=== PATIENT | male | born 1955 | race Caucasian/White ===

== ENCOUNTER → 2022-11-17 11:11 | Outpatient (CLI) | payer MEDICARE, SELFPAY ==
[2022-11-17 13:04] LABS: Add Manual Diff / Slide Review NO; Basophils Absolute Auto 0 /uL (0-100); Basophils Percent Auto 0.7 % (0-2); Eosinophils Absolute Auto 200 /uL (0-450); Eosinophils Percent Auto 2.6 % (2-4); Hematocrit 39.3 % (41-53); Hemoglobin 13.2 g/dL (13.5-17.5); Lymphocytes Absolute Auto 1500 /uL (1100-4500); Lymphocytes Percent Auto 23.3 % (25-40); Mean Corpuscular HGB Conc 33.7 % (30-36); Mean Corpuscular Hemoglobin 29.8 PG (26-34); Mean Corpuscular Volume 88.4 fL (80-100); Monocytes Absolute Auto 400 /uL (0-900); Monocytes Percent Auto 6.9 % (3-14); Neutrophils Absolute Auto 4200 /uL (1500-7000); Neutrophils Percent Auto 66.5 % (50-75); Platelet Count 237 X10^3/uL (150-400); Red Blood Cell Count 4.44 X10^6/uL (4.5-5.9); Red Cell Distribution Width 12.7 % (11.6-14.8); White Blood Cell Count 6.3 X10^3/uL (4.5-11.0)
[2022-11-17 13:07] LABS: Appearance Urine UA CLEAR; Bilirubin Urine UA NEGATIVE (NEGATIVE); Color Urine UA YELLOW; Glucose Urine UA NEGATIVE (Negative); Ketones Urine UA NEGATIVE (NEGATIVE); Leukocyte Esterase Urine UA NEGATIVE (NEGATIVE); Nitrite Urine UA NEGATIVE (Negative); Occult Blood Urine UA NEGATIVE (Negative); Protein Urine UA NEGATIVE (Negative); Specific Gravity Urine UA >=1.030 (1.000-1.035); Urobilinogen Urine UA 0.2 E.U./dL (0.2)
[2022-11-17 13:07] LABS: Hemoglobin A1C% w Est Avg Glu 5.2 % (4.0-6.0)
[2022-11-17 13:33] LABS: Bacteria Urine None Seen; Culture Indicated Urine Cult Not Indicated; RBC Urine None Seen (0-5/HPF); Squamous Epithelial Cell Urine 0-1 /HPF (0-5/HPF); WBC Urine None Seen (0-5/HPF)
[2022-11-17 13:49] LABS: BUN Creatinine Ratio 22.1 (6-22); Blood Urea Nitrogen 21 mg/dL (9-20); Carbon Dioxide 23 mmol/L (22-32); Chloride 107 mmol/L (98-107); Estimated Glomerular Filt Rate > 60 mL/min (>60); Glucose 91 mg/dL (80-110); HEMOLYSIS < 15 (0-50); Potassium 4.3 mmol/L (3.4-5.1); Sodium 138 mmol/L (137-145)
== END ==
PROVIDERS: Referring Provider Orthopaedic Surgery; Visit Provider Orthopaedic Surgery
DX: Z01.818 Encounter for other preprocedural examination (principal); R73.9 Hyperglycemia, unspecified; Z01.812 Encounter for preprocedural laboratory examination; N39.0 Urinary tract infection, site not specified
CPT/HCPCS: 36415; 80048; 81001; 83036; 85025; 93005; 93010

== ENCOUNTER 2023-01-19 10:57 | Day surgery (SDC) | payer MEDICARE, SELFPAY ==
[2023-01-11 08:31] VITALS: BMI 27.8
[2023-01-19] VITALS (13 sets, daily range): BP systolic 105–150; BP diastolic 73–97; PULSE 96–107; RESP 10–18; TEMP 35.9–36.6; O2SAT 95–99; BMI 27.8; BMI 30.2
--- NOTE | 2023-01-19 06:00 | DI.RAD.S_ITS ---
PROCEDURE: XR HIP W PEL IF DONE RT 2V INDICATIONS: PARISH TECHNIQUE: AP pelvis and lateral view of the right hip acquired. COMPARISON: None. FINDINGS: Bones: Improperly of postsurgical changes for right hip arthroplasty, with hardware components in expected positions. The hip joint appears congruent. The visualized bony structures appear intact. Soft tissues: No suspicious soft tissue densities. IMPRESSION: Expected intraoperative appearance of a hip arthroplasty. Dictated by: Jayashree Romero MD, PhD on 01/19/2023 at 15:23 Approved by: Jayashree Romero MD, PhD on 01/19/2023 at 15:23
[2023-01-19] MEDS: VANCOMYCIN 1,000 MG/200 ML PIGGYBACK 200 MG IV (11:38)
[2023-01-19] MEDS: PREGABALIN 75 MG CAPSULE PO (11:39)
[2023-01-19] MEDS: CELECOXIB 200 MG CAPSULE PO (11:39)
[2023-01-19] MEDS: ACETAMINOPHEN 325 MG TABLET 975 MG PO (11:41)
--- NOTE | 2023-01-19 12:39 | PM.PREOP ---
Pre-operative Note Interval Note History & Physical reviewed/Exam performed by Physician: Yes Changes to H&P: No
--- NOTE | 2023-01-19 12:39 | PM.OP.1 ---
Operative Date/Time/Diagnoses Date of procedure: 01/19/23 Time of procedure: 12:39 Pre-op diagnosis: right hip OA Post-op diagnosis: same Procedure & Clinicians Procedure: Right total hip arthroplasty anterior approach Same procedure as scheduled: Yes Indications: The patient has had progressively worsening right hip pain with radiographic changes consistent with arthritis. Non-operative management has failed and the patient has requested total hip replacement. The risks, benefits and alternatives to surgery were discussed with the patient prior to proceeding. Risks discussed included, but were not limited to, failure to relieve pain, leg length discrepancy, dislocation, stiffness, infection, nerve damage, deep venous thrombosis, pulmonary embolism, stroke, coma, heart attack, permanent paralysis and , as well as the potential need for eventual revision of the prosthetic. Surgeon: Patricia Mahoney Debt Collector: Aman Medina Anesthesia Type: General Operative Notes Findings: Tight hip, severe right hip osteoarthritis, soft bone, adequate stability Closure Type: primary Specimen(s): none sent Prosthetic devices, grafts, tissues, transplants, or devices: Mahoney and nephew R3 size 48 cup,one 6.5 mm screw, size 2 standard offset anthology,-3 x 32 Oxinium femoral head, neutral poly liner Estimated Blood Loss (mL): 250 Blood products transfused: none Procedure in detail: The patient was brought to the operating room. Patient was carefully positioned in the supine position. Time-out was performed and antibiotics were given. Anesthesia was induced. She was positioned in the on the table in order to allow hyperextension of the hip. The right lower extremity was prepped and draped in a standard sterile fashion. An anterior right right hip incision was made 1 fingerbreadth lateral to the anterior superior iliac spine and extended distally towards the greater trochanter. Dissection was carried out through skin and subcutaneous tissues. Superficial hemostasis was achieved. The fascia over the tensor fascia earl was defined and incised with a knife. Two Allis clamps were used to grasp the fascia. Tensor fascia earl was retracted laterally. A gelpi retractor was placed. Dissection was carried out down along the neck. The circumflex vessels were carefully identified and cauterized with the Aqua Mantis. There was good visualization of the femoral neck. A Cobra was placed superior to the neck and the gluteus fibers were carefully stripped from that superior aspect of the capsule. A 2nd retractor was placed along the inferior aspect of the neck. The rectus insertion along the capsule was partially released. A 3rd retractor that was then gently placed over the rim of the acetabulum under the rectus. Capsule was carefully incised and released from the intertrochanteric line circumferentially superior to the mid sagittal line and inferiorly to the mid sagittal line until the lesser trochanter was palpable. A tag stitch was placed both in the superior and inferior limb of the capsular insertion. Along the acetabulum capsule was also released up to the mid sagittal 12:00 position. A portion of the labrum was resected. A saw was used to perform an osteotomy at the level of the intertrochanteric line and the junction of the superior femoral neck leaving approximately 1 finger breath of residual inferior neck above the lesser trochanter. A 2nd cut was made along the femoral neck at the base of the head and a napkin ring of neck was removed. Corkscrew was placed in the femoral head and the head was removed without difficulty. Retractors were then repositioned around the acetabulum. Residual labrum was resected and additional osteophytes were removed. A reamer that was 4 mm below the templated size was placed by hand in the acetabulum and it was reamed to centralize the acetabulum. It was then reamed up to 2 under the templated size and fluoroscopy was brought in to confirm the position of the reaming and depth of reaming. I reamed 1 under the anticipated size. A PA was used during the procedure and was essential for intraoperative retraction and safe implantation of the components. A trial cup was placed and noted that it was appropriately sized and fluoroscopy confirmed position and depth. The component was open and inserted without difficulty fluoroscopic imaging was used to confirm that the cup had been adequately seated and was well positioned. It was further stabilized with a single screw. Neutral poly liner was placed. The cup was tested and noted to be stable. Attention was then directed to the femur. The femur was gently hyperextended additional capsular release was performed as needed in order to allow adequate visualization of the proximal femur with elevation of the femur. Patient was placed in a hyperextended slightly adducted position with maximum external rotation. Box osteotome was used to check for any residual neck as well as sclerotic bone along the trochanter. [place] pepper was placed in the femur. We attempted to broach also with a polar broach but it was clearly a very small and tight canal and it was felt that anthology was better technology. Additional broaching was performed. Canal finder was used to determine the alignment of the canal and position. Size 1 broach was placed. The canal was then appropriately broached up to the templated size as long as there was adequate stability of the broach and serial advancement of the broach without excessive impingement. Specific attention was directed at avoiding varus attempting to direct the distal aspect of the broach more anteriorly and avoiding excessive anteversion. Trial reduction initially was clearly too tight. We readjusted the femur and tamped the broach down an additional about 3 mm and calcar planed. Repeat trial reductions Showed acceptable range of motion, good stability, no posterior impingement, judaism of leg length and appropriate lateral shuck. I also hyperflexed the hip and checked that there was no impingement anteriorly and there was good stability with flexion, adduction and internal rotation. Marcaine and Exparel were injected.. The stem was placed without difficulty. Repeat trial reduction and x-ray showed acceptable overall position, length, and no evidence of the femoral fracture. Final head was placed. Wound was meticulously irrigated with normal saline. The hip was reduced and additional Exparel and Marcaine were injected. The capsule was closed with interrupted nonabsorbable sutures. The fascia of the tensor was closed with interrupted and running Vicryl. No drain was placed. Any tensor fascia earl muscle that appeared to be contused or injured which was a minimal amount was carefully resected. Capsule around the tensor was injected with Exparel and Marcaine. The skin was closed with barbed stitches for the subcutaneous tissue and skin. We also used surgical glue. The wound was dressed sterilely. Brief Betadine soak was also used and was meticulously irrigated with normal saline. Patient was transferred to recovery room in satisfactory condition. Complications: none Post-operative Condition: stable Disposition: Acute Care Plan for aftercare: The patient will be maintained on a standard total hip replacement protocol with weight bearing as tolerated and anterior hip precautions. The patient will receive Aspirin and sequential compression devices for DVT prophylaxis. The patient will be discharged home when safe for the home environment.
[2023-01-19] MEDS: CEFAZOLIN 2 GM/100 ML PREMIX 100 ML IV ×2 (13:00→20:43)
[2023-01-19] MEDS: TRANEXAMIC ACID 1,000 MG VIAL 1000 MG INJ ×2 (13:00→15:17)
--- NOTE | 2023-01-19 13:27 | SUR.OPER ---
Supine on padded [place] table with bilateral legs secured in padded positioning boots and suspended in positioning spars, operative leg in traction per surgeon. Head on one pillow. Arm on non-operative side secured on padded armboard <90 degrees abduction. Arm on operative side padded and resting across chest then secured with tape over sheet. Padded perineal post in place per surgeon.
[2023-01-19] MEDS: BUPIVACAINE LIPOSOME 266 MG/20 ML VIAL INJ (13:29)
[2023-01-19] MEDS: BUPIVACAINE 0.25% (PF) 60 ML, EPINEPHrine 0.3 MG INJ (13:30)
[2023-01-19] MEDS: LACTATED RINGERS 1,000 ML 42 ML IV (13:48)
--- NOTE | 2023-01-19 15:26 | DI.RAD.S_ITS ---
PROCEDURE: XR HIP W PEL IF DONE RT 2V INDICATIONS: RIGHT HIP ANTERIOR TOTAL TECHNIQUE: AP pelvis and lateral view of the right hip acquired. COMPARISON: [facility], [place], XR HIP W PEL IF DONE RT 2V, 01/19/2023, 15:05. FINDINGS: Bones: Patient is status post right hip arthroplasty, with hardware components in expected positions. The hip joint appears congruent. The visualized bony structures appear intact. Moderate to severe left hip joint degeneration. Soft tissues: Overlying postoperative changes are noted. No suspicious soft tissue densities. IMPRESSION: Expected immediate postoperative appearance of right hip arthroplasty Dictated by: Ruben Loya [facility] Interpreted: Swathi Crespo MD on 01/19/2023 at 16:09 Transcribed by: MATTHIAS on 01/19/2023 at 16:10 Approved by: Swathi Crespo M.D. on 01/19/2023 at 22:41
[2023-01-19] MEDS: LACTATED RINGERS 1,000 ML 100 ML IV ×2 (16:55→23:44)
[2023-01-19] MEDS: ACETAMINOPHEN 325 MG TABLET 650 MG PO ×2 (17:45→20:47)
[2023-01-19] MEDS: IBUPROFEN 400 MG TABLET PO ×3 (17:45→23:35)
[2023-01-19] MEDS: OXYCODONE IR 5 MG TABLET PO (20:44)
[2023-01-19] MEDS: TOPIRAMATE 25 MG TABLET PO (20:44)
[2023-01-19] MEDS: SUMAtriptan 25 MG TABLET 50 MG PO ×2 (20:44→23:35)
[2023-01-19] MEDS: ASPIRIN EC 81 MG TABLET PO (20:45)
[2023-01-19] MEDS: PRAMIPEXOLE 0.25 MG TABLET 0.125 MG PO (20:45)
[2023-01-19] MEDS: DOCUSATE 100 MG CAPSULE PO (20:47)
[2023-01-19] MEDS: ONDANSETRON 4 MG/2 ML INJ IV (23:35)
[2023-01-20] VITALS: BP 139/78; PULSE 107; RESP 18; TEMP 36.5; O2SAT 95
[2023-01-20] MEDS: IBUPROFEN 400 MG TABLET PO ×2 (03:51→10:04)
[2023-01-20] MEDS: OXYCODONE IR 5 MG TABLET PO ×2 (03:51→08:55)
[2023-01-20] MEDS: ACETAMINOPHEN 325 MG TABLET 650 MG PO ×2 (03:52→10:36)
[2023-01-20 04:00] VITALS: BP 130/76; PULSE 97; RESP 18; TEMP 36.8; O2SAT 96
[2023-01-20] MEDS: CEFAZOLIN 2 GM/100 ML PREMIX 100 ML IV (04:51)
[2023-01-20 05:18] LABS: Hematocrit 35.6 % (36-46); Hemoglobin 11.9 g/dL (12.0-16.0)
--- NOTE | 2023-01-20 06:55 | P.DS_ITS ---
History of Present Illness History of Present Illness Date Patient Seen: 01/20/23 Time Patient Seen: 06:55 Chief complaint: Right Total Hip Arthroplasty/Anterior 01/19 Narrative: Operative Date/Time/Diagnoses Date of procedure: 01/19/23 Time of procedure: 12:39 Pre-op diagnosis: right hip OA Post-op diagnosis: same Procedure & Clinicians Procedure: Right total hip arthroplasty anterior approach Same procedure as scheduled: Yes Indications: The patient has had progressively worsening right hip pain with radiographic changes consistent with arthritis. Non-operative management has failed and the patient has requested total hip replacement. The risks, benefits and alternatives to surgery were discussed with the patient prior to proceeding. Risks discussed included, but were not limited to, failure to relieve pain, leg length discrepancy, dislocation, stiffness, infection, nerve damage, deep venous thrombosis, pulmonary embolism, stroke, coma, heart attack, permanent paralysis and , as well as the potential need for eventual revision of the prosthetic. Surgeon: Patricia Mahoney Latin Professor: Aman Medina Anesthesia Type: General Operative Notes Findings: Tight hip, severe right hip osteoarthritis, soft bone, adequate stability Closure Type: primary Specimen(s): none sent Prosthetic devices, grafts, tissues, transplants, or devices: Mahoney and nephew R3 size 48 cup,one 6.5 mm screw, size 2 standard offset anthology,-3 x 32 Oxinium femoral head, neutral poly liner Estimated Blood Loss (mL): 250 Blood products transfused: none Discharge Providers Provider Discharge Date: 01/20/23 Primary care physician: Raina Davis MD Consults: 01/19/23 06:00 Consult to Anesthesiology Routine Comment: Consulting Provider: Anesthesiologist Reason for consultation: Regional block for post operative pain control 01/19/23 16:37 Consult to Discharge Planning Routine Comment: Consult to Occupational Therapy Evaluate & Treat Comment: Physician Instructions: Evaluate and treat Consult to Physical Therapy Evaluate & Treat Comment: Physician Instructions: post op PARISH protocol Discharge provider: Solange Downs PA-C Summary Hospital Course Discharge Diagnosis: Right hip osteoarthritis, s/p right total hip arthroplasty Hospital Course: Ms Guillen's hospital course was unremarkable. On the morning of POD# 1, she was feeling well and wanted to go home. She was eating and voiding without difficulty and her pain was well-controlled with oral medication. She had not yet worked w/ PT but had been OOB. Exam Vital Signs (past 8 hours): - 01/20/23 00:00 01/20/23 04:00 Temperature 97.7 F 98.2 F Pulse Rate 107 H 97 H Respiratory Rate 18 18 Blood Pressure 139/78 130/76 Pulse Oximetry 95 96 Oxygen Flow Rate 0 0 Oxygen Delivery Method Room Air Oxygen Flow Rate 0 Narrative Exam Narrative: 3/5 hip flexors, 4/5 hamstrings and quadriceps, 5/5 PF, DF, EHL on right. Sensation to light touch intact throughout RLE. Calf soft, compressible, nontender. Aquacel dressing CDI. Objective Labs 01/20/23 04:42 Labs: Laboratory Results - last 24 hr 01/20/23 04:42 Hgb 11.9 L Hct 35.6 L PFSH Medical History (Updated 01/11/23 @ 09:14 by Johnna Ramos RN) History of COVID-19 (01/2022) Melanoma (09/05/21) Osteoarthritis Chronic cough Migraines Surgical History (Updated 01/11/23 @ 09:10 by Johnna Ramos RN) History of arthroscopy of left knee (1998) History of gynecologic surgery (1986) Social History household members: spouse Smoking Status: Never smoker alcohol intake: current Discharge Assessment & Plan Assessment and Plan Assessment: Right hip osteoarthritis, s/p right total hip arthroplasty Plan of Treatment: Discharge home after PT if PT agrees. Pt has post-op pain meds at home. ASA BID x 6 weeks for VTE prophylaxis, outpt PT, f/u in office in 2 weeks as scheduled. Discharge Plan Discharge Plan Patient Disposition: Home Discharge orders & Medications Discharge Orders: Discharge (Order); Ordered 01/20/23 Ordered By: Solange Downs Prescriptions: New oxycodone 5 mg capsule 5 mg PO Q8H PRN (Reason: pain) Qty: 20 0RF aspirin 81 mg Tablet,Delayed Release (Dr/Ec) 81 mg PO BID Qty: 90 0RF Continued tizanidine 4 mg Tablet 4 mg PO BEDTIME rizatriptan [Maxalt] 10 mg Tablet 5 mg PO Q2-4H PRN (Reason: Migraine Headache) Rx Instructions: do not exceed 3 doses per 24 hrs topiramate 25 mg Tablet 25 mg PO BID acetaminophen 500 mg Tablet 1,000 mg PO BID PRN (Reason: Pain) meloxicam 7.5 mg Tablet 7.5 mg PO BID pramipexole 0.125 mg Tablet 0.125 mg PO BEDTIME Follow up/Referrals: Patricia Mahoney MD [Physician] - As previously scheduled (Follow up w/ Aman Medina PA-C, on 02/01/2023 @ 4:30 pm at [facility] in [place].) Raina Davis MD [Primary Care Provider] - Diet/Activity/Treatments Diet: Diet as Tolerated Activity: Weightbearing as tolerated on the right. Anterior hip precautions. Cold/Heat Therapy: Ice to hip as needed for pain. Skin/Wound/Dressing Care Report to your healthcare provider any signs of infection, such as:: chills, fever, night sweats, unusual drainage and unusual redness Dressing: May shower. Leave dressing in place until follow up in office. No bathing or otherwise soaking incision. Call the office if the dressing becomes saturated inside. Visit Report/Discharge Packet Instructions: DI for Hip Replacement, DI for Prescription Opioid Use Stand Alone Forms: Patient Portal/API, Surgery Discharge Discharge Data Primary Care Provider: Raina Davis Attending Provider: Patricia Mahoney Quality VTE Deep Vein Thrombosis/Pulmonary Embolism Present on Admission: No
[2023-01-20 07:57] VITALS: BP 123/73; PULSE 89; RESP 19; TEMP 37.1; O2SAT 99
--- NOTE | 2023-01-20 09:30 | OT.IP.EVAL ---
Current Diagnoses Unilateral primary osteoarthritis, right hip (01/19/23) Surgery Performed Operation Date: 01/19/23 13:15 Actual Procedures p Total Hip Arthroplasty/Anterior Approach(Right) - Patricia Mahoney MD Past Medical History (Last Updated 01/11/23 @ 09:14 by Johnna Ramos, RN) Chronic cough History of COVID-19 (01/2022) Melanoma (09/05/21) Migraines Osteoarthritis Surgical History (Last Updated 01/11/23 @ 09:10 by Johnna Ramos RN) History of arthroscopy of left knee (1998) History of gynecologic surgery (1986) Occupational Therapy Inpatient Evaluation/Re-Eval M1 PT/OT-IP Prior Functional Status Start: 01/20/23 09:31 Freq: NEEDED Status: Active Protocol: Document 01/20/23:31 [facility] (Rec: 01/20/23 09:48 [facility] [id number]) Medical Review Prior Functional Status Communication Independent Mobility and Gait Pt has been practicing in outpt to use the 4ww, with technique to hold the brakes while walking as needed per pt. Activities of Daily Living and IADL's Pt had difficulty to isaac her socks and needing her to assist. Prior Functional Level (Other details) Pt has a supportive to be able to assist her at home . Social History Household Members spouse Living Arrangements House Number of Floors (Floors) One Floor Number of Stairs To Enter/Railing? NO steps to enter. Home Environment High Toilet,Walk in Shower Home Equipment Four Wheel Walker,Grab Bars In Shower Additional Social History Comment There is a counter to the right of the toilet. Pt has a built in seat in the shower. M2 OT-IP Current Condition Start: 01/20/23 09:31 Freq: Status: Active Protocol: Document 01/20/23 09:31 [facility] (Rec: 01/20/23 09:48 [facility] [id number]) Occupational Therapy Current Condition Current Condition Evaluation Date 01/20/23 Treatment Diagnosis S/P R PARISH Diagnosis Onset Date 01/19/23 Post Operative Precautions Anterior Hip Precautions No Hip Extension,No Hip External Rotation M3 OT- IP Subjective and Pain Start: 01/20/23 09:31 Freq: Status: Active Protocol: Document 01/20/23 09:31 [facility] (Rec: 01/20/23 09:48 [facility] [id number]) OT- Subjective Occupational Therapy Visit Type Type Initial Evaluation Visit Start Time 08:50 Visit Stop Time 09:30 Total Visit Minutes 40 Occupational Therapy Visit Comments Patient Comments Pt agreed to get up and get dressed. Patient/Caregiver Goals TO go home. OT Pain Assessment Pain When Pain Assessed At Rest Pain Present Pain Present Pain Reported Location Right Hip Intensity 5 Scale Used Numeric (0 - 10) M4 OT- IP ADL's Start: 01/20/23 09:31 Freq: Status: Active Protocol: Document 01/20/23 09:31 [facility] (Rec: 01/20/23 09:48 [facility] [id number]) OT [id number] General Evaluation Self-Feeding Ability Independent OT ADL-Grooming General Evaluation Grooming Ability Independent OT ADL-Oral Care General Eval Oral Care Ability Independent OT ADL-Dressing General Eval Upper Body Dressing Ability Independent Lower Body Dressing Ability Moderate Assistance Comments OT Dressing Comments MODA assist to help get her right foot into her pants. Assist with right sock and able to show pt use of the manager program and sock aid. Pt states her will just assist her. Pt also has slip on shoes. OT ADL-Toileting Comments OT Toileting Comments Not performed. OT ADL-Bathing Comments OT Bathing Comments Not performed. M5 OT- IP IADL's Start: 01/20/23:31 Freq: Status: Active Protocol: Document 01/20/23 09:31 [facility] (Rec: 01/20/23 09:48 [facility] [id number]) OT-Instrumental Activities of Daily Living Deficits IADL Deficits Identified Deficits Home Safety Awareness Awareness of Need for Assistance at Home Good Awareness Ability to Problem Solve Emergency Able to Problem Solve Situations Medication Management Medication Management No Deficits Identified Money Management Money Management No Deficits Identified Meal Preparation Meal Preparation Comments Pt's to assist. Pants Closer Pants Closer Comments Pt's to assist. M6 OT- IP Functional Cognition Start: 01/20/23:31 Freq: Status: Active Protocol: Document 01/20/23:31 [facility] (Rec: 01/20/23 09:48 [facility] [id number]) Cognitive Factors Limiting Selfcare Function Cognitive Ability Level of Alertness Alert Patient Orientation Name,Age,Birthday,Month,Date, Year,Day of Week,Place, Situation Attention Span Ability Capable of Focused Attention, Capable of Sustained Attention Ability to Follow Commands Able to Follow Multi-Step Commands Memory Description No Deficits Noted Safety Awareness No Deficits Noted Problem Solving Ability No deficits Noted Executive Function Ability No Deficits Noted Cognitive Comments Cognitive Assessment Comments Intact and has good demonstration and understanding to incorporate her hip precautions for ADL and mobility needs. OT- Vision and Hearing OT- Hearing Assessment OT- Hearing Assessment WFL OT- Vision Assessment Visual Acuity Glasses All The Time Visual Attentiveness WFL Occular Pursuits WFL M7 OT- IP Mobility and Balance Start: 01/20/23 09:31 Freq: Status: Active Protocol: Document 01/20/23 09:31 [facility] (Rec: 01/20/23 09:48 [facility] [id number]) OT- Bed Mobility Assessment Supine to Sit Supine to Sit Assist Moderate Assistance Scooting Scooting to Edge of Bed Contact Guard Assistance OT-Transfer Assessment Sit to and From Stand Sit to and from Stand Standby Assistance Transfers Transfer Ability Standby Assistance Technique Transfer Destination Bed,Chair Transfer Technique Stand Step Pivot Devices Transfer Assistive Devices Gait Belt,Front Wheeled Walker ,4 Wheeled Walker Comments Mobility Comments MODA to help lift her right leg and get to the edge of the bed. once up on her feet SBA with FWW , close SBA with 4ww as it tends to roll fast on her but pt able to ride the brakes to assist. OT- Balance Assessment Sitting Balance and Reactions Static Sitting Balance Ability Normal Dynamic Sitting Balance Ability Normal Standing Balance and Reactions Static Standing Balance Ability Good Dynamic Standing Balance Ability Fair M8 OT- IP Objective Assessments Start: 01/20/23 09:31 Freq: Status: Active Protocol: Document 01/20/23:31 [facility] (Rec: 01/20/23 09:48 [facility] [id number]) OT Gross Range of Motion Upper Extremity Range of Motion Assessment Within Functional Limits OT Strength Upper Extremity Strength Assessment Within Functional Limits M9 OT- IP Assessment and Plan Start: 01/20/23 09:31 Freq: Status: Active Protocol: Document 01/20/23 09:31 [facility] (Rec: 01/20/23 09:48 [facility] [id number]) OT Summary Assessment and Plan Potential Rehabilitation Potential Excellent Analytic Complexity at Evaluation Low Summary OT Impairments Pain,Strength,Balance, Functional Mobility,Dressing, Toileting,Bathing,Toilet Transfers,Shower Transfers Progress Towards Goals Progressing Toward Goals Assessment Summary Pt low complexity and main barriers are pain, and decreased strength and control of RLE as just had surgery yesterday. Pt overall doing well and will need assist for dressing and showering needs from her at this time. Pt to go home with assist when medically stable and go to outpt PT. Goals Dressing Goal Independent Toileting Goal Independent Bathing Goal Independent Toilet Transfer Goal Independent Shower Transfer Goal Independent Days to Meet Goals 5 Frequency of Treatment Frequency Of Treatment Once a Day Treatment Plan OT Treatment Plan ADL Training,Functional Mobility,Patient/Family Education,Discharge Planning Discharge Recommendations OT Discharge Recommendations Home with Assistance, Outpatient PT Transportation Needs at Discharge Private Vehicle
--- NOTE | 2023-01-20 09:30 | PT.IIE ---
Current Diagnoses Unilateral primary osteoarthritis, right hip (01/19/23) Surgery Performed Operation Date: 01/19/23 13:15 Actual Procedures p Total Hip Arthroplasty/Anterior Approach(Right) - Patricia Mahoney MD Surgical History (Last Updated 01/11/23 @ 09:10 by Johnna Ramos RN) History of arthroscopy of left knee (1998) History of gynecologic surgery (1986) Medical History (Last Updated 01/11/23 @ 09:14 by Johnna Ramos RN) Chronic cough History of COVID-19 (01/2022) Melanoma (09/05/21) Migraines Osteoarthritis Physical Therapy Inpatient Evaluation/Re-Eval M1 PT/OT-IP Prior Functional Status Start: 01/20/23 09:31 Freq: NEEDED Status: Discharge Protocol: Document 01/20/23 09:31 [facility] (Rec: 01/20/23 09:48 [facility] [id number]) Medical Review Prior Functional Status Communication Independent Mobility and Gait Pt has been practing in outpt PT to use the 4ww to ride the brakes while walking per pt. Activities of Daily Living and IADL's Pt had difficulty to isaac her socks and needing her to assist. Prior Functional Level (Other details) Pt has a supportive to be able to assist her at home . Social History Household Members spouse Living Arrangements Apartment/Condo Number of Floors (Floors) One Floor Number of Stairs To Enter/Railing? NO steps to enter. Home Environment High Toilet,Walk in Shower Home Equipment Four Wheel Walker,Grab Bars In Shower Additional Social History Comment Therer is a counter to the right of the toilet. Pt has a built in seat in the shower. M1 PT/OT-IP Prior Functional Status Start: 01/20/23 12:58 Freq: NEEDED Status: Active Protocol: Document 01/20/23 09:30 AB (Rec: 01/20/23 13:19 AB [id number]) Medical Review Prior Functional Status Medical History Reviewed Yes Communication able to make needs known Mobility and Gait pt stated that she was independent with all mobilities and ambualtion without AD Activities of Daily Living and IADL's Per OT note: Pt had difficulty to isaac her socks and needing her to assist. Social History Household Members spouse Living Arrangements Apartment/Condo Number of Floors (Floors) One Floor Number of Stairs To Enter/Railing? no steps to enter; pt stated that she lives in a [facility] community in [place] Home Environment High Toilet,Walk in Shower, Built-In Shower Seat Home Equipment Four Wheel Walker,Hand Held Shower,Grab Bars Near Toilet, Grab Bars In Shower M2 PT-IP Current Condition Start: 01/20/23 12:58 Freq: NEEDED Status: Active Protocol: Document 01/20/23 09:30 AB (Rec: 01/20/23 13:19 AB [id number]) Physical Therapy Current Condition Current Condition Evaluation Date 01/20/23 Treatment Diagnosis s/p R PARISH anterior approach; difficulty in walking Onset Date 01/19/23 M3 PT-IP Subjective Start: 01/20/23 12:58 Freq: NEEDED Status: Active Protocol: Document 01/20/23 09:30 AB (Rec: 01/20/23 13:19 AB [email or web address]) Subjective Physical Therapy Visit Type Type Initial Evaluation Visit Start Time 09:30 Visit Stop Time 10:05 Total Visit Minutes 35 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 Physical Therapy Visit Comments Patient Comments agreeable to do PT Therapy Pain Assessment Pain When Pain Assessed At Rest Pain Present Pain Present Pain Reported Location Right Hip Intensity 6 Scale Used Numeric (0 - 10) Pain Behaviors Guarding,Wincing Pain Management Techniques Apply Cold,Distraction, Modification of Treatment,Re- positioning,Timing of Activity with Medications M4 PT-IP Mobility and Gait Start: 01/20/23 12:58 Freq: NEEDED Status: Active Protocol: Document 01/20/23 09:30 AB (Rec: 01/20/23 13:19 AB [id number]) PT-Bed Mobility Assessment Supine to Sit Supine to Sit Minimal Assistance Sit to Supine Sit to Supine Minimal Assistance PT-Transfer Assessment Sit to and From Stand Sit to and from Stand Standby Assistance,1 Person Assistance,Use of Upper Extremities Equipment Transfer Assistive Device Gait Belt,Front Wheeled Walker ,4 Wheeled Walker Orthotic/Prosthetic Devices or Brace: No Transfers Transfer Destination Bed,Chair Transfer Technique ambulated Transfer Ability Level of Assist Standby Assistance,1 Person Assistance,Use of Upper Extremities Comments Mobility Comments pt sitting on the chair. agreed to do PT. reviewed anterior R hip precautions. pt completed sit to stand SBA and ambulated in room using FWW ~ 30 ft and sat on EOB. completed sit to supine min A for RLE elevation to bed. pt stated that she can ask her spouse to assist her. pt completed supine to sit min A with RLE to EOB. pt able to sit on EOb SBA. agreed to do more ambulation. pt has a 4WW at home to use. educated on how to use 4WW safely. pt completed sit to stand from EOB SBA and ambulated in the hallway using 4WW SBA ~ 75 ft requiring occasional cues for hip precautions. pt sat back on the chair. positioned pt on the chair. call light and table placed within reach. pt stated that spouse will not be able to come in for training and her friend will be the one that will pick her up to go home. pt stated that she can direct her spouse on how to assist her. Gait Assessment Gait Gait Assistance Required: Standby Assistance Distance (Feet) 75 Able to Maintain Weight Bearing Status Yes During Gait Assistive Devices Assistive Device Gait Belt,Front Wheeled Walker ,4 Wheeled Walker Orthotic/Prosthetic Devices or Brace: No Gait Deviations General Gait Pattern Decreased Feet Clearance Factors Limiting Gait Function Factors Limiting Gait Function Decreased Activity Tolerance, Decreased Strength,Limited Range of Motion,Pain,Poor Balance,Poor Safety Awareness PT-Balance Assessment Sitting Balance and Reactions Static Sitting Balance Ability Normal Dynamic Sitting Balance Ability Good Standing Balance and Reactions Static Standing Balance Ability Fair Dynamic Standing Balance Ability Fair Device Used FWW M5 PT-IP Objective Assessments Start: 01/20/23 12:58 Freq: NEEDED Status: Active Protocol: Document 01/20/23 09:30 AB (Rec: 01/20/23 13:19 AB [id number]) Orientation Orientation/Cognition Level of Alertness Alert Orientation Name,Place,Situation Language Function Ability No Deficits Noted Safety Awareness Decreased Safety Awareness Memory Description No Deficits Noted Gross Range of Motion Lower Extremity ROM Assessment Within Functional Limits Strength Lower Extremity Strength Assessment Right Impaired Hip 2+/5 Knee 3+/5 Sensation Assessment Sensation Gross Sensation Right LE Impaired Sensation Description Numbness Comments Sensation Comments c/o slight numbness on R anterior thigh Muscle Tone Muscle Tone WNL Yes M6 PT-IP Treatment Start: 01/20/23 12:58 Freq: NEEDED Status: Active Protocol: Document 01/20/23 09:30 AB (Rec: 01/20/23 13:19 AB [email or web address]) Physical Therapy Treatment Education Education Provided Precautions,Weight Bearing Status,Safety M7 PT-IP Assessment and Plan Start: 01/20/23 12:58 Freq: NEEDED Status: Active Protocol: Document 01/20/23 09:30 AB (Rec: 01/20/23 13:19 AB [id number]) PT Summary Assessment and Plan Potential Rehabilitation Potential Fair Status of Condition at Evaluation Stable Summary Impairments Pain,ROM,Strength,Balance, Coordination,Sensation,Tone, Cognition,Bed Mobility, Transfers,Gait,Activity Tolerance Assessment Summary pt is a 67 y/o F s/p R PARISH anterior approach. pt with R anterior hip precautions and is WBAT. pt requiring min A for bed mobility, SBA for transfers and ambulation using 4WW. pt plans to go home and spouse to assist her. pt stated that she has outpt PT set up. pt may go home when medically stable. Goals Bed Mobility Goal Independent Transfer Goal Independent,Four Wheeled Walker Gait Goal Independent,Four Wheel Walker Gait Distance 300 Other Goals improve transfers and ambulation using LRAD/without AD mod I >300 ft Days to Meet Goals 5 Frequency of Treatment Frequency Of Treatment Twice a Day Treatment Plan Physical Therapy Treatment Plan Bed Mobility Training,Transfer Training,Gait Training, Therapeutic Exercise,Balance Retraining,Post Op Education, Discharge Planning,Hot or Cold Pack,Neuromuscular Re-ed, Coordination Retraining,Manual Therapy Precautions Anterior Hip Precautions No Hip Extension,No Hip External Rotation Weight Bearing Status Weight Bearing Status Weight Bear as Tolerated Allowed Weight Bearing Amount (enter % RLE WBAT or #) (%) Recommendations To Nursing Amount of Assist Needed 1 Person Assist Discharge Recommendations PT Discharge Recommendations Home with Assistance, Outpatient PT Transportation Needs at Discharge Private Vehicle
[2023-01-20] MEDS: ASPIRIN EC 81 MG TABLET PO (10:04)
[2023-01-20] MEDS: ONDANSETRON 4 MG/2 ML INJ IV (10:04)
[2023-01-20] MEDS: TOPIRAMATE 25 MG TABLET PO (10:05)
[2023-01-20] MEDS: DOCUSATE 100 MG CAPSULE PO (10:09)
--- NOTE | 2023-01-20 11:02 | PC.NURSE ---
Pt discharged home at 1050, escorted off floor in wheelchair accompanied by hospital staff. IV removed, discharge teaching provided including new medications, follow up appointments and wound care. Questions and concerns addressed. Pt left the floor with all belongings.
--- NOTE | 2023-01-29 17:03 | PM.EVENT ---
Event Note Date Patient Seen: 01/19/23 Time Patient Seen: 12:50 Event Note (Rapid Response, Code, or fall): Late entry:induction medications 2mg Midazolam, 100mcg Fentanyl 100mg Lidocaine, 140mg Propofol
== END 2023-01-20 11:15 | disposition home or self-care (01) ==
LOC: OR 10:59 → AC 11:00
PROVIDERS: PCP Internal Medicine; Referring Provider Orthopaedic Surgery; Visit Provider Orthopaedic Surgery
PROC: (CPT 27130; principal; 2023-01-19 13:15)
DX: M16.11 Unilateral primary osteoarthritis, right hip (principal); I10 Essential (primary) hypertension; I12.9 Hypertensive chronic kidney disease with stage 1 through stage 4 chronic kidney disease, or unspecified chronic kidney disease; N18.32 Chronic kidney disease, stage 3b
CPT/HCPCS: 27130; 36415; 73502; 76000; 85014; 85018; 97116; 97161; 97165; 97535; C1776; C9290; J0171; J0690; J1100; J1170; J2250; J2405; J2704; J3010

== ENCOUNTER → 2023-11-21 09:08 | Outpatient (CLI) | payer MEDICARE, SELFPAY ==
[2023-01-19 16:50] VITALS: BMI 30.2
--- NOTE | 2023-11-21 09:10 | DI.CT.S_ITS ---
PROCEDURE: CT ANGIO HEAD AND NECK INDICATIONS: ALTERED AWARENESS, TRANSIENT / DIZZINESS TECHNIQUE: After the administration of intravenous contrast, 1 mm thick sections acquired from the aortic arch through the [place] of [place]. 3-dimensional rglnorc-qjbdyqvrs-meszodpoku (MIP) and/or volume rendering reformats were acquired of the central intracranial vasculature and neck separately. For radiation dose reduction, the following was used: automated exposure control, adjustment of mA and/or kV according to patient size. COMPARISON: [facility], MR, MR HEAD/BRAIN WO CON, 11/21/2023, 10:00. FINDINGS: Image quality: Diagnostic. BRAIN: CSF spaces: Ventricles are normal in size and shape. Basal cisterns are patent. No extra-axial fluid collections. Brain: No significant abnormality of the brain can be seen. Skull and face: Calvarium and facial bones appear intact, without suspicious lesions. Orbits appear normal. Sinuses: Sinuses and mastoids are clear. HEAD CT ANGIOGRAPHY: Anterior circulation: Intracranial internal carotid arteries are normal in size and flow. The flow within the paired anterior cerebral arteries is normal and symmetric. The flow within the middle cerebral arteries is normal and symmetric. The anterior communicating artery is seen. No aneurysms are seen. Posterior circulation: Left vertebral artery dominance. Visualized portions of the vertebral arteries demonstrate normal caliber, and join to form a normal appearing basilar artery. Flow within the posterior cerebral arteries is normal and symmetric. No aneurysms are seen. 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 The origins of the common carotid arteries appear patent. The common carotid arteries demonstrate normal caliber and courses. The bifurcation regions are both widely patent. The internal carotid arteries demonstrate normal calibers and courses. Posterior circulation: The origins of the vertebral arteries both appear widely patent. The more superior extracranial portions of both vertebral arteries also demonstrate normal courses and calibers. They join to form a normal appearing basilar artery. Soft tissues: Significant bilateral heterogeneous, right greater thyroid with right to left midline shift. Bones: No suspicious bony lesions. Visualized cervical spine appears normally aligned. IMPRESSION: No significant intracranial arterial abnormality is seen. No significant abnormality is seen within the arteries of the neck. Markedly enlarged heterogeneous thyroid gland with tracheal right to left midline shift. No priors. Thyroid ultrasound is recommended for further evaluation. Any quantitative measurements of stenosis were performed using NASCET criteria. Dictated by: Swathi Crespo M.D. on 11/21/2023 at 14:09 Approved by: Swathi Crespo M.D. on 11/21/2023 at 14:14
--- NOTE | 2023-11-21 09:11 | DI.MRI.S_ITS ---
PROCEDURE: MR HEAD/BRAIN WO CON INDICATIONS: ALTERED AWARENESS, TRANSIENT / DIZZINESS TECHNIQUE: Non-contrast axial T1 spin echo, axial T2 fast spin echo, sagittal and axial FLAIR, coronal T2 fast spin echo, axial gradient echo, axial diffusion and ADC through the brain. COMPARISON: None. FINDINGS: Image quality: Excellent. CSF spaces: Ventricles appear symmetric in size and shape. Basal cisterns are patent. No extra-axial fluid collections. Brain: No intracranial bleeds or mass effects. There is cerebral volume loss for age. There are periventricular and deep white matter chronic small vessel ischemic changes. Brainstem appears normal. Diffusion-weighted images show no acute infarct. No chronic ischemic insults. Normal intravascular flow voids are present. Skull and face: Calvarial bone marrow is normal in signal. Orbits are normal. Sinuses: Sinuses demonstrate minimal pansinus mucosal thickening. IMPRESSION: 1. No acute intracranial process. 2. Moderate atrophy and chronic microvascular ischemic changes. Dictated by: Swathi Crespo M.D. on 11/21/2023 at 14:26 Approved by: Swathi Crespo M.D. on 11/21/2023 at 14:26
[2023-11-21 09:38] LABS: Estimated Glomerular Filt Rate > 60 mL/min (>60)
== END ==
PROVIDERS: Radiology Diagnostic Radiology; PCP Internal Medicine
DX: R42 Dizziness and giddiness (principal); E04.9 Nontoxic goiter, unspecified
CPT/HCPCS: 36415; 70496; 70498; 70551; 82565; Q9967